=== PATIENT | male | born 1970 | race Caucasian/White ===

== ENCOUNTER 2021-08-07 08:06 | Outpatient (CLI) | payer SELFPAY ==
[2021-08-07 07:08] VITALS: BP 141/87; PULSE 80; RESP 18; TEMP 36.8; O2SAT 95
[2021-08-07 09:05] VITALS: BMI 28.7
[2021-08-07 09:40] VITALS: BP 141/90; PULSE 80; RESP 18; TEMP 36.8; O2SAT 96
[2021-08-07 10:30] VITALS: BP 132/83; PULSE 65; RESP 17; TEMP 36.7; O2SAT 95
== END 2021-08-07 08:07 | disposition home or self-care (01) ==
PROVIDERS: Visit Provider Nurse Practitioner
DX: U07.1 COVID-19 (principal)
CPT/HCPCS: 96365